=== PATIENT | female | born 1940 | race Two or more races ===

== ENCOUNTER → 2024-05-27 | Outpatient (CLI) | payer MEDICARE, MEDICAID, SELFPAY | END | disposition home or self-care (01) | LOC: SLDO 15:14 | PROVIDERS: PCP Family Medicine; Referring Provider Family Medicine; Visit Provider Family Medicine | DX: N39.0 Urinary tract infection, site not specified (principal) | CPT/HCPCS: 87077; 87086; 87186 ==

== ENCOUNTER → 2024-06-24 | Outpatient (CLI) | payer MEDICARE, MEDICAID, SELFPAY ==
--- NOTE | 2024-06-24 10:53 | XR_ITS ---
Examination: Abdomen AP single view Technique: AP portable supine abdomen, single view Exam date and time: June 24, 2024 1217 hours INDICATIONS: Left upper abdominal pain beginning one month ago FINDINGS: Moderate to large amounts of stool throughout the colon No obstruction Heavy vascular calcification Prominent osteopenia IMPRESSION: Moderate to large amounts of stool throughout the colon
== END | disposition home or self-care (01) ==
LOC: CDIM 10:35
PROVIDERS: PCP Family Medicine; Referring Provider Family Medicine; Visit Provider Family Medicine
DX: K59.00 Constipation, unspecified (principal)
CPT/HCPCS: 74018

== ENCOUNTER → 2024-07-20 | Outpatient (CLI) | payer OTHER, MEDICAID, SELFPAY ==
[2024-07-20 08:56] LABS: Basophils # (Auto) 0.1 Thou/mm3 (0.0-0.2); Basophils % (Auto) 1 % (0-2.5); Eosinophils # (Auto) 0.5 Thou/mm3 (0.0-0.5); Eosinophils % (Auto) 6 % (0-10); Hematocrit 34.2 % (36.0-46.0); Hemoglobin 11.5 g/dL (12.0-16.0); Immature Granulocytes % (Auto) 0 % (0-0); Immature Granulocytes Auto 0.01 Thou/mm3 (0.00-0.00); Lymphocytes # (Auto) 2.2 Thou/mm3 (1.0-4.8); Lymphocytes % (Auto) 30 % (10-50); Mean Corpuscular HGB Conc 33.6 g/dl (31.0-37.0); Mean Corpuscular Hemoglobin 33.4 pg (25.0-35.0); Mean Corpuscular Volume 99 fL (80-100); Monocytes # (Auto) 0.8 Thou/mm3 (0.0-0.8); Monocytes % (Auto) 11 % (0-12); Neutrophils # (Auto) 3.8 Thou/mm3 (1.8-7.7); Neutrophils % (Auto) 52 % (37-80); Nucleated Red Blood Cell % 0 /100 WBC (0); Platelet Count 179 Thou/mm3 (140-440); RDW Standard Deviation 49.6 fL (36.4-46.3); Red Blood Count 3.44 Miln/mm3 (4.00-5.20); White Blood Count 7.3 Thou/mm3 (3.6-11.0)
[2024-07-20 09:13] LABS: Glucose Estimated Average 169 mg/dL (80-131); Hemoglobin A1C 7.5 % Hgb (4.8-6.0)
[2024-07-20 09:29] LABS: Alanine Aminotransferase 12 U/L (10-49); Albumin, Serum 4.1 gm/dL (3.4-4.8); Albumin/Globulin Ratio 1.8 (1.2-2.2); Alkaline Phosphatase 116 U/L (46-116); Anion Gap 11 (7-16); Aspartate Amino Transferase 20 U/L (0-34); BUN/Creatinine Ratio 6 Ratio (12-20); Bilirubin,Total 0.5 mg/dL (0.3-1.2); Blood Urea Nitrogen 25 mg/dL (9-23); Calcium 8.9 mg/dL (8.3-10.6); Calcium (Corrected) 8.9 mg/dL (8.5-10.1); Carbon Dioxide 29.7 mMol/L (20.0-31.0); Cardiac Risk Estimate 2.4 RATIO (3.7-5.6); Chloride 100 mMol/L (98-107); Cholesterol 142 mg/dL (132-200); Creatinine (Component) 3.9 mg/dL (0.6-1.3); Globulin 2.3 gm/dL (2.3-3.5); Glucose 139 mg/dL (74-106); HDL Cholesterol 59 mg/dL (40-60); LDL Cholesterol,Calculated 58 mg/dL (0-130); Osmolality,Calculated 287 (275-295); Potassium 3.9 mMol/L (3.4-5.1); Sodium 141 mMol/L (136-145); Total Protein 6.4 gm/dL (5.7-8.2); Triglycerides 123 mg/dL (30-150); eGFR 11 See Note
[2024-07-20 09:52] LABS: Creatinine MALB Rnd Ur 203 mg/dL (30-125); Microalbumin Creat Ratio 187 mg/gCrea (<30); Microalbumin, Random Urine > 380 mg/L (0-300)
== END | disposition home or self-care (01) ==
LOC: COPL 06:53
PROVIDERS: PCP Family Medicine; Referring Provider Nurse Practitioner Family; Visit Provider Nurse Practitioner Family
DX: E11.22 Type 2 diabetes mellitus with diabetic chronic kidney disease (principal)
CPT/HCPCS: 36415; 80053; 80061; 82043; 82570; 83036; 85025

== ENCOUNTER → 2024-07-21 | Outpatient (CLI) | payer OTHER, MEDICAID, SELFPAY | END | disposition home or self-care (01) | LOC: SLDO 15:09 | PROVIDERS: PCP Family Medicine; Referring Provider Family Medicine; Visit Provider Family Medicine | DX: N39.0 Urinary tract infection, site not specified (principal) | CPT/HCPCS: 87086 ==

== ENCOUNTER → 2024-08-05 | Outpatient (CLI) | payer MEDICARE, MEDICAID, SELFPAY ==
[2024-08-11 06:58] LABS: Aldosterone* 2 ng/dL
[2024-08-16 06:56] LABS: Renin Activity, Plasma* 2.67 ng/mL/h (0.25-5.82)
== END | disposition home or self-care (01) ==
PROVIDERS: PCP Family Medicine; Referring Provider Nurse Practitioner Family; Visit Provider Nurse Practitioner Family
DX: I10 Essential (primary) hypertension (principal)
CPT/HCPCS: 36415; 82088; 84244

== ENCOUNTER → 2024-10-19 | Outpatient (CLI) | payer MEDICARE, MEDICAID, SELFPAY ==
[2024-10-19 08:40] LABS: Basophils # (Auto) 0.1 Thou/mm3 (0.0-0.2); Basophils % (Auto) 1 % (0-2.5); Eosinophils # (Auto) 0.6 Thou/mm3 (0.0-0.5); Eosinophils % (Auto) 8 % (0-10); Hematocrit 33.4 % (36.0-46.0); Immature Granulocytes % (Auto) 0 % (0-0); Immature Granulocytes Auto 0.01 Thou/mm3 (0.00-0.00); Lymphocytes # (Auto) 1.9 Thou/mm3 (1.0-4.8); Lymphocytes % (Auto) 27 % (10-50); Mean Corpuscular HGB Conc 32.9 g/dl (31.0-37.0); Mean Corpuscular Hemoglobin 33.7 pg (25.0-35.0); Mean Corpuscular Volume 103 fL (80-100); Monocytes # (Auto) 0.8 Thou/mm3 (0.0-0.8); Monocytes % (Auto) 11 % (0-12); Neutrophils # (Auto) 3.7 Thou/mm3 (1.8-7.7); Neutrophils % (Auto) 53 % (37-80); Nucleated Red Blood Cell % 0 /100 WBC (0); Platelet Count 206 Thou/mm3 (140-440); RDW Standard Deviation 46.7 fL (36.4-46.3); Red Blood Count 3.26 Miln/mm3 (4.00-5.20)
[2024-10-19 08:42] LABS: Alanine Aminotransferase 15 U/L (10-49); Albumin, Serum 4.1 gm/dL (3.4-4.8); Albumin/Globulin Ratio 1.5 (1.2-2.2); Alkaline Phosphatase 123 U/L (46-116); Anion Gap 7 (7-16); Aspartate Amino Transferase 26 U/L (0-34); BUN/Creatinine Ratio 6 Ratio (12-20); Bilirubin,Total 0.6 mg/dL (0.3-1.2); Blood Urea Nitrogen 23 mg/dL (9-23); Calcium 8.9 mg/dL (8.3-10.6); Calcium (Corrected) 8.9 mg/dL (8.5-10.1); Carbon Dioxide 31.1 mMol/L (20.0-31.0); Cardiac Risk Estimate 2.4 RATIO (3.7-5.6); Chloride 102 mMol/L (98-107); Cholesterol 131 mg/dL (132-200); Creatinine (Component) 3.6 mg/dL (0.6-1.3); Globulin 2.8 gm/dL (2.3-3.5); Glucose 114 mg/dL (74-106); HDL Cholesterol 54 mg/dL (40-60); LDL Cholesterol,Calculated 51 mg/dL (0-130); Osmolality,Calculated 284 (275-295); Potassium 4.4 mMol/L (3.4-5.1); Sodium 140 mMol/L (136-145); Total Protein 6.9 gm/dL (5.7-8.2); Triglycerides 129 mg/dL (30-150); eGFR 12 See Note
[2024-10-19 08:48] LABS: Creatinine MALB Rnd Ur 104 mg/dL (30-125); Microalbumin Creat Ratio 365 mg/gCrea (<30); Microalbumin, Random Urine > 380 mg/L (0-300)
[2024-10-19 08:49] LABS: Glucose Estimated Average 157 mg/dL (80-131); Hemoglobin A1C 7.1 % Hgb (4.8-6.0)
== END | disposition home or self-care (01) ==
LOC: COPL 07:27
PROVIDERS: PCP Family Medicine; Referring Provider Nurse Practitioner Family; Visit Provider Nurse Practitioner Family
DX: E11.22 Type 2 diabetes mellitus with diabetic chronic kidney disease (principal); N18.9 Chronic kidney disease, unspecified
CPT/HCPCS: 36415; 80053; 80061; 82043; 82570; 83036; 85025

== ENCOUNTER → 2024-11-01 | Outpatient (CLI) | payer MEDICARE, MEDICAID, SELFPAY | END | disposition home or self-care (01) | LOC: SLDO 14:58 | PROVIDERS: PCP Family Medicine; Referring Provider Family Medicine; Visit Provider Family Medicine | DX: N39.0 Urinary tract infection, site not specified (principal) | CPT/HCPCS: 87077; 87086; 87186 ==

== ENCOUNTER → 2024-11-11 | Outpatient (CLI) | payer MEDICARE, MEDICAID, SELFPAY | END | disposition home or self-care (01) | LOC: SLDO 14:46 | PROVIDERS: Referring Provider Family Medicine; Visit Provider Family Medicine | DX: N39.0 Urinary tract infection, site not specified (principal) | CPT/HCPCS: 87086 ==

== ENCOUNTER → 2024-11-26 | Outpatient (CLI) | payer MEDICARE, MEDICAID, SELFPAY | END | disposition home or self-care (01) | LOC: SLDO 14:45 | PROVIDERS: Referring Provider Family Medicine; Visit Provider Family Medicine | DX: N39.0 Urinary tract infection, site not specified (principal) | CPT/HCPCS: 87077; 87086; 87186 ==

== ENCOUNTER → 2024-11-30 | Outpatient (CLI) | payer MEDICARE, MEDICAID, SELFPAY ==
[2024-11-30 11:34] LABS: Partial Thromboplastin Time 26.7 Seconds (22.0-36.0); Prothrombin Time 11.3 Seconds (9.0-12.2)
[2024-11-30 11:51] LABS: Basophils # (Auto) 0.1 Thou/mm3 (0.0-0.2); Basophils % (Auto) 1 % (0-2.5); Eosinophils # (Auto) 0.3 Thou/mm3 (0.0-0.5); Eosinophils % (Auto) 5 % (0-10); Hematocrit 33.4 % (36.0-46.0); Hemoglobin 10.9 g/dL (12.0-16.0); Immature Granulocytes % (Auto) 0 % (0-0); Immature Granulocytes Auto 0.02 Thou/mm3 (0.00-0.00); Lymphocytes # (Auto) 1.6 Thou/mm3 (1.0-4.8); Lymphocytes % (Auto) 26 % (10-50); Mean Corpuscular HGB Conc 32.6 g/dl (31.0-37.0); Mean Corpuscular Hemoglobin 33.4 pg (25.0-35.0); Mean Corpuscular Volume 103 fL (80-100); Monocytes # (Auto) 0.6 Thou/mm3 (0.0-0.8); Monocytes % (Auto) 10 % (0-12); Neutrophils # (Auto) 3.6 Thou/mm3 (1.8-7.7); Neutrophils % (Auto) 58 % (37-80); Nucleated Red Blood Cell % 0 /100 WBC (0); Platelet Count 158 Thou/mm3 (140-440); RDW Standard Deviation 48.6 fL (36.4-46.3); Red Blood Count 3.26 Miln/mm3 (4.00-5.20); White Blood Count 6.2 Thou/mm3 (3.6-11.0)
[2024-11-30 12:12] LABS: Alanine Aminotransferase 15 U/L (10-49); Albumin, Serum 4.1 gm/dL (3.4-4.8); Albumin/Globulin Ratio 1.7 (1.2-2.2); Alkaline Phosphatase 96 U/L (46-116); Anion Gap 11 (7-16); Aspartate Amino Transferase 23 U/L (0-34); BUN/Creatinine Ratio 7 Ratio (12-20); Bilirubin,Total 0.5 mg/dL (0.3-1.2); Blood Urea Nitrogen 27 mg/dL (9-23); Calcium 8.7 mg/dL (8.3-10.6); Calcium (Corrected) 8.7 mg/dL (8.5-10.1); Carbon Dioxide 31.2 mMol/L (20.0-31.0); Chloride 99 mMol/L (98-107); Creatinine (Component) 3.8 mg/dL (0.6-1.3); Globulin 2.4 gm/dL (2.3-3.5); Glucose 147 mg/dL (74-106); Osmolality,Calculated 289 (275-295); Potassium 3.9 mMol/L (3.4-5.1); Sodium 141 mMol/L (136-145); Total Protein 6.5 gm/dL (5.7-8.2); eGFR 11 See Note
== END | disposition home or self-care (01) ==
LOC: COPL 10:28
PROVIDERS: PCP Family Medicine; Referring Provider Family Medicine; Visit Provider Family Medicine
DX: Z01.810 Encounter for preprocedural cardiovascular examination (principal)
CPT/HCPCS: 36415; 80053; 85025; 85610; 85730

== ENCOUNTER 2025-01-18 10:11 | Emergency (ER) | payer MEDICAID, SELFPAY ==
[2025-01-18] VITALS (8 sets, daily range): BP systolic 133–171; BP diastolic 50–98; PULSE 67–76; RESP 15–19; TEMP 36.7–37.2; O2SAT 95–99
--- NOTE | 2025-01-18 | XR_ITS ---
MRI abdomen, without contrast. MRCP Date and time of exam: January 18, 2025, 1812 hours INDICATIONS: Abdominal pain and tenderness in the upper abdomen, abdomen sonogram January 18, 2025 enlarged common bile duct 12 mm Technique: Multiple axial and coronal images of the abdomen have been obtained with the Siemens 1.5T MRI scanner. Images obtained included T1 weighted transverse images, T2-weighted transverse images, T2-weighted transverse images fat-suppressed, T2 weighted haste fat suppressed transverse images, T1 weighted images, in and out of phase images, T2-weighted coronal images, breath hold, T2 weighted haze coronal images as well as T2 weighted coronal thick slab images, MRCP. Findings: Mild intrahepatic biliary tract dilatation Abnormal common hepatic duct measuring 15 mm Axial image 24 suspicious for 8 mm impacted stone in the distal common bile duct Spleen is not enlarged No hydronephrosis Bilateral benign renal cysts No pancreatic mass No ascites IMPRESSION: Abnormal extrahepatic biliary tract dilatation, findings suspicious for 8 mm impacted stone in the distal common bile duct, recommend ERCP follow-up
--- NOTE | 2025-01-18 | XR_ITS ---
Examination: CT abdomen and pelvis without contrast. Coronal 3-D reconstructions. Sagittal 2-D reconstructions. Date and time of exam:January 18, 2025 1053 hours Comparison February 15, 2022 INDICATIONS: Generalized abdominal pain and vomiting today CTDI: vol (mGy): 6.43 DLP: (mGycm): 344 Technique: Axial images of the abdomen have been obtained, 3 mm slice thickness Intravenous contrast material has not been administered. Low dose protocols were performed. One or more of the following dose reduction techniques were used; automated exposure control, adjustment of the mA and/or KV according to patient size, use of iterative reconstruction technique. Findings: Mild enlargement cardiac contour, pericardial effusion measuring up to 14 mm No visualized liver or splenic lesion Gallbladder is not visualized Common hepatic duct 12 mm No pancreatic mass Atrophic kidneys with renal arterial calcifications, no hydronephrosis or ureteral calculi Dense abdominal aortic calcification Colonic diverticulosis, no diverticulitis, mild small bowel ileus Absent uterus No adnexal mass Bladder intact Severe osteopenia Moderate narrowing hip joints IMPRESSION: Enlarged common hepatic duct, recommend hepatobiliary sonography follow-up Atrophic kidneys No CT findings of appendicitis or bowel obstruction Colonic diverticulosis, no diverticulitis Mild small bowel ileus
[2025-01-18 10:54] LABS: Collection Type, Urine Clean Catch
[2025-01-18 10:57] LABS: Bilirubin,Urine Negative (Negative); Blood,Urine Negative (Negative); Clarity,Urine Clear (Clear/Hazy); Color,Urine Yellow (Lt Yel-Yel); Culture Indicated,Urine Not Indicated; Glucose, Urine 2+ (Negative); Hyaline Casts,Urine < 1 /hpf (0-1); Ketones,Urine Negative (Negative); Leukocyte Esterase,Urine Negative (Negative); Nitrite,Urine Negative (Negative); PH,Urine 7.5 (5.0-7.0); Protein,Urine 3+ (Neg - Trace); RBC,Urine 29 /hpf (0-3); Specific Gravity,Urine 1.017 (1.001-1.035); Squamous Epithelial Cell,Urine 2 /hpf (0-5); Urobilinogen,Urine Negative mg/dL (0.0-1.0); WBC,Urine 6 /hpf (0-5)
--- NOTE | 2025-01-18 11:08 | EDNOTE_ITS ---
ED Abdominal Pain RME/HPI General Chief Complaint: Abdominal Pain Stated complaint: RUQ ABD VERY TENDER; SENT BY PCP FOR ACUTE ABD Time seen by provider: 01/18/25 11:00 Arrival date/time: 01/18/25 10:11 Source: patient Limitations: no limitations RME / HPI RME / HPI narrative: 84-year-old female is here today with diffuse abdominal pain for 1 day. She states this comes and goes. She has had nausea but no emesis. No changes in urination. She does have a history of hypertension, end-stage renal disease, and prior cholecystectomy. Her cholecystectomy was performed approximately 30 to 40 years ago. She does dialysis every Friday, Friday, and Friday. She has no missed runs of dialysis. She denies any fevers or chills. She has no other acute complaints. Related Data Home Medications ?Medication ?Instructions ?Recorded ?Confirmed simvastatin 40 mg tablet 40 mg PO HS CHOLESTEROL ##0 05/04/13 12/16/23 aspirin 81 mg capsule 81 mg PO DAILY 09/02/2212/05 hydralazine 50 mg tablet 50 mg PO DAILY 09/02/2212/05 hydroxyzine HCl 25 mg tablet 25 mg PO HS PRN Itching 0 09/02/22 12/16/23 valsartan 80 mg tablet 80 mg PO DAILY 09/02/2212/05 carvedilol 3.125 mg tablet 3.125 mg PO DAILY 09/18/22 12/16/23 semaglutide 0.25 mg or 0.5 mg (2 0.25 mg subcut QWEEK 09/18/22 12/16/23 mg/1.5 mL) subcutaneous pen injector (Ozempic) Allergies Allergy/AdvReac Type Severity Reaction Status Date / Time Iodinated Contrast Media Allergy Severe RASH,ITCHY Verified 01/18/25 10:15 WELTS iodine Allergy Mild SWELLING, Verified 01/18/25 10:15 ITCHING Penicillins Allergy Mild SWELLING, Verified 01/18/25 10:15 ITCHING carbidopa (From Sinemet) Allergy Verified 01/18/25 10:15 enalaprilat (From Vasotec) Allergy Verified 01/18/25 10:15 levodopa (From Sinemet) Allergy Verified 01/18/25 10:15 moxifloxacin (From Avelox) Allergy Verified 01/18/25 10:15 niacin Allergy Verified 01/18/25 10:15 pioglitazone (From Actos) Allergy Verified 01/18/25 10:15 prednisone Allergy Verified 01/18/25 10:15 sulfamethizole Allergy Verified 01/18/25 10:15 tramadol Allergy Verified 01/18/25 10:15 trimethoprim Allergy Verified 01/18/25 10:15 Review of Systems Review of Systems Systems Reviewed: All systems reviewed, normal except as documented ED Exam General Limitations: Present no limitations General appearance: Present alert and in no apparent distress Head Head exam: Present atraumatic Eye Eye exam: Present normal appearance, PERRL and EOMI ENT ENT exam: Present normal exam, normal oropharynx and mucous membranes moist Neck Neck exam: Present normal inspection, full ROM and trachea midline Chest Chest inspection: Present normal inspection and symmetric chest wall rise Respiratory Respiratory exam: Present normal lung sounds bilaterally Cardiovascular Cardiovascular exam: Present regular rate, normal rhythm and normal heart sounds Abdominal Exam Abdominal exam: Present soft, tenderness, guarding and rebound; Absent rigidity Extremities Exam Extremities exam: Present normal inspection and full ROM Back Exam Back exam: Present normal inspection and full ROM Neurological Exam Neurological exam: Present alert and oriented X3 Psychiatric Psychiatric exam: Present normal affect and normal mood Skin Skin exam: Present warm, dry, intact and normal color Course Quality Measures none Orders Category Date Time Status Insert IV NOW Care 01/18/25 10:27 Active MRI Screening NOW Care 01/18/25 14:35 Active Transfer to another facility [Transfer/Discharge] Stat Discharge 01/18/25 19:[address] abdomen pelvis wo con Stat Exams 01/18/25 Completed MR MRCP Stat Exams 01/18/25 Completed US abdomen limited Stat Exams 01/18/25 12:43 Completed CBC Stat Lab 01/18/25 10:50 Completed Comprehensive Metabolic Panel Stat Lab 01/18/25 10:50 Completed Lipase Stat Lab 01/18/25 10:50 Completed UA, C/S IF [Urinalysis, C/S if Indicated] Stat Lab 01/18/25 10:51 Completed Morphine Inj Med 01/18/25 11:06 Discontinued 2 mg IVP X1 ONE Ondansetron Inj [Zofran Inj] Med 01/18/25 10:27 Discontinued 4 mg IVP X1 ONE Vital Signs Vital signs: Vital Signs Temperature 98.4 F 01/18/25 10:18 Pulse Rate 76 01/18/25 10:18 Respiratory Rate 18 01/18/25 10:18 Blood Pressure 144/61 H 01/18/25 10:18 Pulse Oximetry (%) 98 01/18/25 10:18 Oxygen Delivery Method Room Air 01/18/25 10:18 Abdominal Pain MDM MDM Narrative MDM Narrative:: 84-year-old female is here today with diffuse abdominal pain for 1 day. She states this comes and goes. She has had nausea but no emesis. No changes in urination. She does have a history of hypertension, end-stage renal disease, and prior cholecystectomy. Her cholecystectomy was performed approximately 30 to 40 years ago. She does dialysis every Friday, Friday, and Friday. She has no missed runs of dialysis. She denies any fevers or chills. She has no other acute complaints. On exam, patient is in mild to moderate pain. This resolved with a dose of morphine. Her CBC is unremarkable. Metabolic panel reveals a creatinine of 3.7, her potassium is 4.0. Her blood sugar is 185. Her bicarb is 26. Her lipase is 25. Urinalysis is reveals 29 erythrocytes and 6 leukocytes. Her liver functions are unremarkable. A CT of the abdomen pelvis was initially obtained and later an ultrasound of the right upper quadrant. There are concerns as she has a dilated common bile duct at 12 mm. MR CP was obtained. There is suspicion for retained stone in the distal common bile duct. Patient was informed. We will begin looking for an appropriate facility to transfer her to. At approximately [address] Rodriguez with GI at [facility] in [place], [place] was contacted and accepted the patient. Patient will be transferred. Patient data External records reviewed:: None Clinical information provided by:: patient and EMS Social determinants that could affect healthcare access:: none Patient has the following chronic illnesses:: End-stage renal disease, hypertension How is presenting disease/condition affected by chronic disease/condition?: uneffected by Evaluation data The following diagnostics were reviewed and interpreted by me:: lab results (CBC is unremarkable. Metabolic panel is unremarkable. Lipase is unremarkable.) and radiology exam(s) (CT of the abdomen pelvis in addition to ultrasound revealed a common bile duct dilation at 12 mm. MRCP was obtained which revealed a 18 mm stone in the distal, bile duct) Lab and/or radiology exams considered but not ordered:: n/a Interpretation Summary: Choledocholithiasis Medications / Prescriptions Medications or Prescriptions considered but not ordered:: n/a Medication administrations:: Medication Administration History Discontinued Medications Morphine Sulfate (Morphine Sulf Inj 10 Mg/Ml Vial) 2 mg IVP X1 ONE Stop: 01/18/25 11:07 Last Admin: 01/18/25 11:18 Dose: 2 mg Documented By: MARK Ondansetron HCl (Ondansetron Inj 2 Mg/Ml Inj 2 Ml) 4 mg IVP X1 ONE; Protocol Stop: 01/18/25 10:28 Last Admin: 01/18/25 11:17 Dose: 4 mg Documented By: MARK See above Consultations Consultation(s) initiated? (list below): Yes Diagnosis Differential diagnosis abdominal pain: abdominal pain, calculus of kidney, constipation, gastroenteritis, pancreatitis and small bowel obstruction Most likely diagnosis given after review of the tests above:: Choledocholithiasis Admission Indicated Admission indicated?: indicated Admission Request Was there a request for admission?: Yes Admission Attestation Admission request attestation: Discussed case with [] from Hospitalist service regarding admission. Discussed patients ED course, exam findings, labs, and radiology results. The Hospitalist [agrees,declines] to accept the patient for admission. Disposition Plan Disposition Plan: Transfer Discharge Plan Plan Patient Disposition: [facility] Being Transferred to: [facility] Service Needed for Transfer: Gastroenterology Patient condition on transfer: Stable Prescriptions/Referrals Prescriptions/Med Rec: No Action simvastatin 40 MG tablet 40 mg PO HS Qty: 0 carvedilol 3.125 mg Tablet 3.125 mg PO DAILY Rx Instructions: must administer with a meal/food Ozempic 0.25 mg or 0.5 mg(2 mg/1.5 mL) Pen Injector 0.25 mg SUBCUT QWEEK Rx Instructions: for 4 weeks on sundays hydralazine 50 mg tablet 50 mg PO DAILY valsartan 80 mg tablet 80 mg PO DAILY Patient Comments: TAKE 1 TABLET BY MOUTH EVERY DAY hydroxyzine HCl 25 mg tablet 25 mg PO HS PRN (Reason: Itching) Patient Comments: TAKE 1 TABLET BY MOUTH AT BEDTIME NEEDED FOR ITCHING aspirin 81 mg Capsule 81 mg PO DAILY Referrals: Ihsan Cuevas MD [Primary Care Provider] - In 1 week Problem List Clinical Impression: Choledocholithiasis, Diabetes, End-stage renal disease (ESRD) Patient/Caregiver Discharge Instructions Print Language: New Zealander Stand Alone Forms: Janeth Award Info., Patient Portal Info Letter
[2025-01-18] MEDS: ONDANSETRON INJ 2 MG/ML INJ 2 ML 4 MG IVP (11:17)
[2025-01-18] MEDS: MORPHINE SULF INJ 10 MG/ML VIAL 2 MG IVP (11:18)
[2025-01-18 11:32] LABS: Basophils # (Auto) 0.0 Thou/mm3 (0.0-0.2); Basophils % (Auto) 0 % (0-2.5); Eosinophils # (Auto) 0.1 Thou/mm3 (0.0-0.5); Eosinophils % (Auto) 1 % (0-10); Hematocrit 39.4 % (36.0-46.0); Hemoglobin 13.4 g/dL (12.0-16.0); Immature Granulocytes Auto 0.02 Thou/mm3 (0.00-0.00); Lymphocytes # (Auto) 2.1 Thou/mm3 (1.0-4.8); Lymphocytes % (Auto) 20 % (10-50); Mean Corpuscular HGB Conc 34.0 g/dl (31.0-37.0); Mean Corpuscular Hemoglobin 33.5 pg (25.0-35.0); Mean Corpuscular Volume 99 fL (80-100); Monocytes # (Auto) 0.8 Thou/mm3 (0.0-0.8); Monocytes % (Auto) 8 % (0-12); Neutrophils # (Auto) 7.6 Thou/mm3 (1.8-7.7); Neutrophils % (Auto) 71 % (37-80); Nucleated Red Blood Cell # 0.00 Thou/mm3 (0.00-0.00); Nucleated Red Blood Cell % 0 /100 WBC (0); Platelet Count 173 Thou/mm3 (140-440); RDW Standard Deviation 47.9 fL (36.4-46.3); Red Blood Count 4.00 Miln/mm3 (4.00-5.20); White Blood Count 10.7 Thou/mm3 (3.6-11.0)
[2025-01-18 11:47] LABS: Alanine Aminotransferase 12 U/L (10-49); Albumin, Serum 4.2 gm/dL (3.4-4.8); Albumin/Globulin Ratio 1.4 (1.2-2.2); Alkaline Phosphatase 93 U/L (46-116); Anion Gap 13 (7-16); Aspartate Amino Transferase 22 U/L (0-34); BUN/Creatinine Ratio 6 Ratio (12-20); Bilirubin,Total 1.1 mg/dL (0.3-1.2); Blood Urea Nitrogen 24 mg/dL (9-23); Calcium 9.1 mg/dL (8.3-10.6); Calcium (Corrected) 9.1 mg/dL (8.5-10.1); Carbon Dioxide 26.0 mMol/L (20.0-31.0); Chloride 99 mMol/L (98-107); Creatinine (Component) 3.7 mg/dL (0.6-1.3); Globulin 3.0 gm/dL (2.3-3.5); Glucose 185 mg/dL (74-106); Lipase 25 U/L (12-53); Osmolality,Calculated 284 (275-295); Potassium 4.0 mMol/L (3.4-5.1); Sodium 138 mMol/L (136-145); Total Protein 7.2 gm/dL (5.7-8.2); eGFR 11 See Note
--- NOTE | 2025-01-18 12:43 | XR_ITS ---
Examination: Abdomen sonogram, Limited Date and time of exam: January 18, 2025 at 12:57 PM INDICATIONS: Right upper abdominal pain beginning 2 days ago Technique: Real-time love scale transabdominal sonographic images of the upper abdomen obtained. Findings: Absent gallbladder Common bile duct 12 mm Pancreatic head 2.4 cm Liver 14.4 cm fatty infiltration 21 mm liver cyst Normal hepatopedal portal venous flow Patent IVC IMPRESSION: Absent gallbladder Common bile duct 12 mm, clinical correlation advised If biliary colic is a clinical consideration, suggest MRCP follow-up
--- NOTE | 2025-01-18 17:11 | PC.NURSE ---
PATIENT WAITING FOR MRCP. PATIENT VITALS STABLE. PATIENT DENIES ABDOMINAL PAIN AT THIS TIME. PLAN OF CARE ONGOING
--- NOTE | 2025-01-18 19:27 | PC.CC ---
1925: spoke to ED still operator whiskey Lydia, informed of situation below. She stated she will send out clinicals and follow through. 1923: Called [facility], spoke to Natacha. She stated she is not in the office and she will call me back when she gets back to her office. I informed her to call ED instead since the patient is in the ED. She stated she has the number and will call. 1923: received transfer request for ERCP.
--- NOTE | 2025-01-18 21:10 | PC.NURSE ---
[facility] Accepts [facility] ED TO ED. Nurse Report to Nieves @ [phone] Pt is needing ERCP
--- NOTE | 2025-01-18 22:57 | PC.NURSE ---
CALLED REPORT TO [facility] SPOKE TO FELY DIAZ.
== END 2025-01-18 22:59 | disposition short-term general hospital (02) ==
PROVIDERS: Nurse Practitioner Primary Care; Emergency Provider Emergency Medicine; PCP Family Medicine
DX: K80.50 Calculus of bile duct without cholangitis or cholecystitis without obstruction (principal); E11.22 Type 2 diabetes mellitus with diabetic chronic kidney disease; I12.0 Hypertensive chronic kidney disease with stage 5 chronic kidney disease or end stage renal disease; N18.6 End stage renal disease; Z99.2 Dependence on renal dialysis; Z90.49 Acquired absence of other specified parts of digestive tract; K57.30 Diverticulosis of large intestine without perforation or abscess without bleeding; K56.7 Ileus, unspecified
CPT/HCPCS: 36415; 74176; 76705; 80053; 81001; 83690; 85025; 96374; 96375; 99283; J2270; J2405; S8037; 74181

== ENCOUNTER → 2025-03-29 | Outpatient (CLI) | payer MEDICARE, MEDICAID, SELFPAY ==
--- NOTE | 2025-03-29 07:26 | EKG_ITS ---
[facility] Test Date: 2025-03-29 Pat Name: MICHAEL ESTRADA Department: Room: - Gender: Female Administrative Job Titles: RT STUDENT : 1940 Requested By: Ihsan Puri Order Number: [id number] Reading MD: Ihsan Puri Measurements Intervals Zebulon Rate: 68 P: 6 KS: 203 QRS: -35 QRSD: 86 T: 40 QT: 404 QTc: 432 Interpretive Statements SINUS RHYTHM MARKED LEFT AXIS DEVIATION [QRS AXIS < -30] POSSIBLE RIGHT VENTRICULAR CONDUCTION DELAY [RSR (QR) IN V1/V2] MODERATE VOLTAGE CRITERIA FOR LVH, CONSIDER NORMAL VARIANT [MEETS CRITERIA IN ONE OF: R(aVL), S(V1), R(V5), R(V5/V6)+S(V1)] POSSIBLE ANTERIOR MYOCARDIAL INFARCTION , PROBABLY OLD [30 ms Q WAVE IN V3/V4, OR R < 0.2 mV IN V4] Compared to ECG 12/24/2023 17:07:26 Myocardial infarct finding now present /store/S0/[id number].pdf
[2025-03-29 08:44] LABS: Basophils # (Auto) 0.1 Thou/mm3 (0.0-0.2); Basophils % (Auto) 1 % (0-2.5); Eosinophils # (Auto) 0.3 Thou/mm3 (0.0-0.5); Eosinophils % (Auto) 5 % (0-10); Hematocrit 31.8 % (36.0-46.0); Hemoglobin 10.6 g/dL (12.0-16.0); Immature Granulocytes Auto 0.01 Thou/mm3 (0.00-0.00); Lymphocytes # (Auto) 1.7 Thou/mm3 (1.0-4.8); Lymphocytes % (Auto) 25 % (10-50); Mean Corpuscular HGB Conc 33.3 g/dl (31.0-37.0); Mean Corpuscular Hemoglobin 33.1 pg (25.0-35.0); Mean Corpuscular Volume 99 fL (80-100); Monocytes # (Auto) 0.6 Thou/mm3 (0.0-0.8); Monocytes % (Auto) 10 % (0-12); Neutrophils # (Auto) 3.9 Thou/mm3 (1.8-7.7); Neutrophils % (Auto) 59 % (37-80); Nucleated Red Blood Cell # 0.00 Thou/mm3 (0.00-0.00); Nucleated Red Blood Cell % 0 /100 WBC (0); Platelet Count 150 Thou/mm3 (140-440); RDW Standard Deviation 47.8 fL (36.4-46.3); Red Blood Count 3.20 Miln/mm3 (4.00-5.20); White Blood Count 6.6 Thou/mm3 (3.6-11.0)
[2025-03-29 09:09] LABS: Alanine Aminotransferase 14 U/L (10-49); Albumin, Serum 4.1 gm/dL (3.4-4.8); Albumin/Globulin Ratio 1.7 (1.2-2.2); Alkaline Phosphatase 152 U/L (46-116); Anion Gap 10 (7-16); Aspartate Amino Transferase 18 U/L (0-34); BUN/Creatinine Ratio 7 Ratio (12-20); Bilirubin,Total 0.6 mg/dL (0.3-1.2); Blood Urea Nitrogen 24 mg/dL (9-23); Calcium 8.7 mg/dL (8.3-10.6); Calcium (Corrected) 8.7 mg/dL (8.5-10.1); Carbon Dioxide 29.7 mMol/L (20.0-31.0); Chloride 97 mMol/L (98-107); Creatinine (Component) 3.3 mg/dL (0.6-1.3); Globulin 2.4 gm/dL (2.3-3.5); Glucose 217 mg/dL (74-106); Osmolality,Calculated 284 (275-295); Potassium 4.1 mMol/L (3.4-5.1); Sodium 137 mMol/L (136-145); Total Protein 6.5 gm/dL (5.7-8.2); eGFR 13 See Note
[2025-03-29 09:38] LABS: INR 1.0 (0.9-1.3); Partial Thromboplastin Time 28.0 Seconds (22.0-36.0); Prothrombin Time 11.4 Seconds (9.0-12.2)
== END | disposition home or self-care (01) ==
PROVIDERS: PCP Family Medicine; Referring Provider Family Medicine; Visit Provider Family Medicine
DX: Z01.810 Encounter for preprocedural cardiovascular examination (principal)
CPT/HCPCS: 36415; 80053; 85025; 85610; 85730; 93005

== ENCOUNTER → 2025-06-07 | Outpatient (CLI) | payer MEDICARE, MEDICAID, SELFPAY ==
[2025-06-07 08:21] LABS: Hemoglobin 11.5 g/dL (12.0-16.0); Immature Granulocytes Auto 0.01 Thou/mm3 (0.00-0.00); Nucleated Red Blood Cell # 0.00 Thou/mm3 (0.00-0.00); Nucleated Red Blood Cell % 0 /100 WBC (0)
[2025-06-07 08:29] LABS: Basophils # (Auto) 0.0 Thou/mm3 (0.0-0.2); Basophils % (Auto) 1 % (0-2.5); Eosinophils # (Auto) 0.4 Thou/mm3 (0.0-0.5); Eosinophils % (Auto) 5 % (0-10); Hematocrit 34.6 % (36.0-46.0); Lymphocytes # (Auto) 2.2 Thou/mm3 (1.0-4.8); Lymphocytes % (Auto) 34 % (10-50); Mean Corpuscular HGB Conc 33.2 g/dl (31.0-37.0); Mean Corpuscular Hemoglobin 32.7 pg (25.0-35.0); Mean Corpuscular Volume 98 fL (80-100); Monocytes # (Auto) 0.6 Thou/mm3 (0.0-0.8); Monocytes % (Auto) 9 % (0-12); Neutrophils # (Auto) 3.3 Thou/mm3 (1.8-7.7); Neutrophils % (Auto) 51 % (37-80); Platelet Count 152 Thou/mm3 (140-440); RDW Standard Deviation 44.7 fL (36.4-46.3); Red Blood Count 3.52 Miln/mm3 (4.00-5.20); White Blood Count 6.5 Thou/mm3 (3.6-11.0)
[2025-06-07 08:35] LABS: Glucose Estimated Average 163 mg/dL (80-131); Hemoglobin A1C 7.3 % Hgb (4.8-6.0)
[2025-06-07 09:04] LABS: Alanine Aminotransferase 19 U/L (10-49); Albumin, Serum 4.3 gm/dL (3.4-4.8); Alkaline Phosphatase 185 U/L (46-116); Anion Gap 10 (7-16); Aspartate Amino Transferase 29 U/L (0-34); BUN/Creatinine Ratio 6 Ratio (12-20); Bilirubin,Total 0.4 mg/dL (0.3-1.2); Blood Urea Nitrogen 24 mg/dL (9-23); Calcium 8.6 mg/dL (8.3-10.6); Calcium (Corrected) 8.6 mg/dL (8.5-10.1); Carbon Dioxide 31.3 mMol/L (20.0-31.0); Cardiac Risk Estimate 2.3 RATIO (3.7-5.6); Chloride 99 mMol/L (98-107); Cholesterol 115 mg/dL (132-200); Creatinine (Component) 3.8 mg/dL (0.6-1.3); Glucose 108 mg/dL (74-106); HDL Cholesterol 50 mg/dL (40-60); LDL Cholesterol,Calculated 50 mg/dL (0-130); Osmolality,Calculated 284 (275-295); Potassium 4.1 mMol/L (3.4-5.1); Sodium 140 mMol/L (136-145); Triglycerides 73 mg/dL (30-150); eGFR 11 See Note
[2025-06-07 13:13] LABS: Albumin/Globulin Ratio 1.7 (1.2-2.2); Globulin 2.6 gm/dL (2.3-3.5); Total Protein 6.9 gm/dL (5.7-8.2)
[2025-06-07 17:49] LABS: Creatinine MALB Rnd Ur 159 mg/dL (30-125); Microalbumin Creat Ratio 239 mg/gCrea (<30); Microalbumin, Random Urine > 380 mg/L (0-300)
== END | disposition home or self-care (01) ==
LOC: COPL 07:39
PROVIDERS: PCP Family Medicine; Referring Provider Internal Medicine Endocrinology, Diabetes & Metabolism; Visit Provider Internal Medicine Endocrinology, Diabetes & Metabolism
DX: E11.22 Type 2 diabetes mellitus with diabetic chronic kidney disease (principal); N18.9 Chronic kidney disease, unspecified
CPT/HCPCS: 36415; 80053; 80061; 82043; 82570; 83036; 85025

== ENCOUNTER → 2025-07-05 | Outpatient (CLI) | payer MEDICARE, MEDICAID, SELFPAY ==
--- NOTE | 2025-07-05 | XR_ITS ---
Examination: Lumbar spine, 5 views Technique: Lumbar spine AP, lateral, coned lateral lower lumbar spine, bilateral obliques 5 views Exam date and time: July 05, 2025, 2001 hours, comparison January 15, 2023 INDICATION: Low back pain several months. FINDINGS: Severe osteopenia Lumbar levoscoliosis 10 degrees Moderate narrowing hip joints Moderate to advanced diffuse facet arthropathy Heavy abdominal aortic calcification No lumbar fracture Moderate to advanced degenerative disc disease most prominent at L5-S1 IMPRESSION: Moderate to advanced lumbar degenerative disc disease most severe at L5-S1
== END | disposition home or self-care (01) ==
PROVIDERS: PCP Family Medicine; Referring Provider Family Medicine; Visit Provider Family Medicine
DX: M51.370 Other intervertebral disc degeneration, lumbosacral region with discogenic back pain only (principal); M51.360 Other intervertebral disc degeneration, lumbar region with discogenic back pain only
CPT/HCPCS: 72110